=== PATIENT | male | born 1975 | race Caucasian/White ===

== ENCOUNTER → 2020-06-19 | Outpatient (CLI) | payer OTHER ==
[~2020-06-19] MED LIST: ALL DAY ALLERGY10 M2 PO; AZELASTINE137 MCG/0.; CRESTOR10 MG PO; EFFEXOR XR 150150 MG PO; FLONASE ALLER15.8 ML; HYDROCODON-ACE1 EAC2 PO; NORVASC10 MG PO; OMEPRAZOLE20 MG PO; PREDNISONE20 MG PO; [UNRECOGNIZED DRUG - OTHER] PO
== END ==
LOC: KOH-I 08:00
DX: J32.9 Chronic sinusitis, unspecified (principal); J34.89 Other specified disorders of nose and nasal sinuses
CPT/HCPCS: 70486

== ENCOUNTER → 2020-07-04 | Outpatient (CLI) | payer OTHER | LOC: OPSV2 08:49 | DX: Z01.818 Encounter for other preprocedural examination (principal) ==

== ENCOUNTER → 2020-07-10 | Day surgery (SDC) | payer OTHER | END | disposition home or self-care (01) | LOC: OR 05:54 | DX: J34.2 Deviated nasal septum (principal); J32.9 Chronic sinusitis, unspecified; J34.3 Hypertrophy of nasal turbinates; J34.1 Cyst and mucocele of nose and nasal sinus; I10 Essential (primary) hypertension; F32.9 Major depressive disorder, single episode, unspecified; E78.5 Hyperlipidemia, unspecified; K21.9 Gastro-esophageal reflux disease without esophagitis; Z79.899 Other long term (current) drug therapy | CPT/HCPCS: C1726; J0171; J0690; J1100; J2001; J2250; J2405; J2704; J2710; J3010; J7030; J7120 ==